=== PATIENT | female | born 1970 | race Caucasian/White ===

== ENCOUNTER 2017-08-25 22:36 | Emergency (ER) | payer MEDICARE, MEDICAID ==
[~2017-08-25] VITALS: Ht 165.1 cm; Wt 80.0 kg
[2017-08-25] MEDS ORDERED: SODIUM CHLORIDE 0.9% 1,000ML IVBOLUS ONE (23:30)
[2017-08-25 23:39] LABS: HEMATOCRIT 44.9 % (34.6-47.8); HEMOGLOBIN 15.3 g/dL (11.7-16.4); WHITE BLOOD COUNT 7.2 x10^3/uL (3.4-10)
[2017-08-25 23:52] LABS: ASPARTATE AMINO TRANSFERASE 11 U/L (15-37); BLOOD UREA NITROGEN 7 mg/dL (7-18)
[2017-08-26] MEDS ORDERED: SODIUM CHLORIDE 0.9% 1,000ML IVBOLUS ONE (01:00)
[2017-08-26 01:48] VITALS: BP 144/82
== END 2017-08-26 02:39 | disposition home or self-care (01) ==
LOC: ED 23:14
DX: J20.9 Acute bronchitis, unspecified (principal); B34.9 Viral infection, unspecified; E11.65 Type 2 diabetes mellitus with hyperglycemia; E11.21 Type 2 diabetes mellitus with diabetic nephropathy; I10 Essential (primary) hypertension; F17.200 Nicotine dependence, unspecified, uncomplicated; Z59.0 Homelessness
CPT/HCPCS: 36415; 71010; 80053; 81003; 82010; 83690; 85025; 87040; 96360; 96361; 99285; J7030; 82962

== ENCOUNTER 2017-09-03 18:52 | Emergency (ER) | payer MEDICARE, MEDICAID ==
[~2017-09-03] VITALS: Ht 157.5 cm; Wt 82.0 kg
[2017-09-03] MEDS ORDERED: methylPREDNISolone SOD SUCC 125 MG/2 ML ONE (19:07)
[2017-09-03] MEDS: ALBUTEROL/IPRATROPIUM 2.5MG/0.5MG, 3 ML NPPB SCH (19:12)
[2017-09-03 19:18] LABS: HEMATOCRIT 45.4 % (34.6-47.8); HEMOGLOBIN 15.2 g/dL (11.7-16.4); WHITE BLOOD COUNT 8.1 x10^3/uL (3.4-10)
[2017-09-03] MEDS ORDERED: methylPREDNISolone SOD SUCC 125 MG/2 ML IVP ONE (19:30)
[2017-09-03] MEDS ORDERED: SODIUM CHLORIDE 0.9% 1,000ML IVBOLUS ONE (19:30)
[2017-09-03] MEDS ORDERED: SODIUM CHLORIDE FLUSH 10ML SYR IVF ONE (19:30)
[2017-09-03 19:31] LABS: BLOOD UREA NITROGEN 5 mg/dL (7-18)
[2017-09-03] MEDS ORDERED: METF500T4 PO (19:31)
[2017-09-03] MEDS ORDERED: INSU100C SQ-INSULIN (19:32)
[2017-09-03] MEDS ORDERED: ALBU2.5V11 NEB (19:32)
[2017-09-03 19:36] LABS: ASPARTATE AMINO TRANSFERASE 8 U/L (15-37)
[2017-09-03 19:41] LABS: IS PT STATUS REG ER OR PRE ER? YES
[2017-09-03] MEDS ORDERED: INSULIN REGULAR 100 UNITS/ML, 3ML VIAL SQ-INSULIN ONE ×2 (20:00→21:00)
[2017-09-03] MEDS ORDERED: INSULIN REGULAR 100 UNITS/ML, 3ML VIAL ONE ×2 (20:05→20:58)
[2017-09-03 21:16] VITALS: BP 157/96
== END 2017-09-03 22:40 | disposition home or self-care (01) ==
LOC: ED 21:25
DX: R07.89 Other chest pain (principal); E11.65 Type 2 diabetes mellitus with hyperglycemia; J45.41 Moderate persistent asthma with (acute) exacerbation; I10 Essential (primary) hypertension; F17.200 Nicotine dependence, unspecified, uncomplicated
CPT/HCPCS: 36415; 71020; 80053; 83880; 84484; 84703; 85025; 93005; 94640; 96361; 96372; 96374; 99285; 99406; J2930; J7030; J7620